=== PATIENT | female | born 1990 | race Caucasian/White ===

== ENCOUNTER 2020-06-21 10:41 | Outpatient (CLI) | payer OTHER, SELFPAY ==
--- NOTE | ~2020-06-21 | XR_ITS ---
XR foot RT min 3V DATE: 06/21/2020 11:17 INDICATION: Right foot pain, generalized. No known injury. TECHNIQUE: 4 views COMPARISON: None FINDINGS: Mild plantar calcaneal enthesopathy. No fracture or dislocation, periosteal reaction or bone destruction. Joint spaces are preserved. IMPRESSION: Mild plantar calcaneal enthesopathy Reviewed, dictated and finalized at location A.
== END 2020-06-21 10:42 | disposition home or self-care (01) ==
DX: M79.671 Pain in right foot (principal); M77.31 Calcaneal spur, right foot
CPT/HCPCS: 73630

== ENCOUNTER 2020-12-24 11:19 | Emergency (ER) | payer OTHER, SELFPAY ==
--- NOTE | ~2020-12-24 | XR_ITS ---
EXAMINATION: XR chest 2V DATE: 12/24/2020 11:37 INDICATION: Cough and shortness of breath. TECHNIQUE: Frontal and lateral views of the chest were obtained. COMPARISON: Chest 2 views 04/04/2018 FINDINGS: The chest demonstrates clear lungs without pneumonia, pleural effusion, or pneumothorax. Th e heart size is normal. IMPRESSION: 1. No acute cardiopulmonary disease. Reviewed, dictated and finalized at location A. ER PICKER
[2020-12-24 11:21] VITALS: BP 123/92; PULSE 100; RESP 28; TEMP 36.4; O2SAT 97
--- NOTE | 2020-12-24 11:24 | ECG_ITS ---
Measurements Intervals [place] Rate: 84 P: 48 [place]: 143 QRS: 66 QRSD: 83 T: 45 QT: 373 QTc: 441 Interpretive Statements SINUS RHYTHM BORDERLINE T WAVE ABNORMALITY- INFERIOR LEADS BASELINE ARTIFACT- I, II, III, AVR, AVL, AVF, V1-V3 BORDERLINE ECG Electronically Signed On 12-24-2020 12:00:46 PERIOPERATIVE NURSE by Jesse Hobbs D.O.
[2020-12-24 11:55] LABS: Basophils Absolute Auto 0.1 K/mm3 (0.0-0.1); Basophils Percent Auto 0.9 % (0.2-1.2); Eosinophils Absolute Auto 1.6 K/mm3 (0-0.3); Eosinophils Percent Auto 11.1 % (0-4.4); Hematocrit 42.4 % (37.0-47.0); Immature Granulocyte Absolute 0.06 K/mm3 (0.00-0.031); Immature Granulocyte Percent A 0.4 % (0-0.5); Lymphocytes Absolute Auto 2.95 K/mm3 (0.9-3.2); Lymphocytes Percent Auto 20.9 % (18.3-44.2); Mean Corpuscular Hemoglobin 29.1 pg (26-34); Mean Corpuscular Volume 88.1 fl (80-100); Monocytes Absolute Auto 0.9 K/mm3 (0.1-0.6); Monocytes Percent Auto 6.4 % (2.6-8.5); Neutrophils Absolute Auto 8.5 K/mm3 (1.3-6.7); Neutrophils Percent Auto 60.3 % (45.5-73.1); Platelet Count Result 305 k/mm3 (150-375); Red Blood Count 4.81 M/mm3 (4.2-5.4); Red Cell Distribution Width 11.9 % (11.5-14.5); White Blood Count 14.1 K/mm3 (4.5-10.0)
[2020-12-24 12:07] LABS: Anion Gap 7 mmol/L (8-16); Blood Urea Nitrogen 9 mg/dL (7-17); Calcium 9.3 mg/dL (8.4-10.2); Carbon Dioxide 31 mmol/L (22-30); Chloride 97 mmol/L (98-107); Estimated CRCL calculation 131 ml/min; Estimated Glomerular Filt Rate > 60; Glucose 99 mg/dL (65-110); Potassium 4.1 mmol/L (3.4-5.0); Sodium 135 mmol/L (137-145)
[2020-12-24 13:00] VITALS: BP 135/77; PULSE 92; RESP 17; O2SAT 90
[2020-12-24 13:49] VITALS: PULSE 94; O2SAT 92
[2020-12-24 14:00] VITALS: BP 115/77; PULSE 82; RESP 16; O2SAT 90
[2020-12-24 15:00] VITALS: BP 106/73; PULSE 81; RESP 14; O2SAT 90
--- NOTE | 2020-12-24 15:07 | ED.SOB ---
HPI - SOB/Dyspnea General Chief Complaint: Shortness of Breath/Dyspnea Stated Complaint: SOB Time Seen by Provider: 12/24/20 15:06 Source: patient Mode of arrival: ambulatory Limitations: no limitations History of Present Illness HPI Narrative: Patient presents with shortness of breath, productive cough of clear sputum, nasal congestion, postnasal discharge and sore throat started 2 days ago. Patient is fully vaccinated for COVID-19, had the booster dose October 2020. Patient denies exposure to anybody known having COVID-19 infection. Patient denies having any family member having similar symptoms. Patient denies any fever, chills, chest pain. Related Data Allergies Allergy/AdvReac Type Severity Reaction Status Date / Time topiramate Allergy Intermediate CHEST PAIN Verified 12/24/20 13:39 penicillin G Allergy Mild RASH Verified 12/24/20 13:39 vancomycin Allergy Mild Itching Verified 12/24/20 13:39 prednisone AdvReac Muscle Verified 12/24/20 13:39 Spasms Review of Systems Review of Systems: CONSTITUTIONAL: Denies fever, chills, or sweats. EYES: Denies visual changes, redness, or discharge. ENT: Denies rhinorrhea, congestion, sore throat, or otalgia. CARDIOVASCULAR: Denies chest pain, palpitations, or edema. RESPIRATORY: Denies cough or dyspnea. GASTROINTESTINAL: Denies abdominal pain, nausea, vomiting, or diarrhea. GENITOURINARY: Denies dysuria or hematuria. SKIN: Denies rash or itching. MUSCULOSKELETAL: Denies back pain, joint pain, or myalgia. NEUROLOGIC: Denies headache, numbness, or weakness. PSYCHIATRIC: Denies anxiety or depression. Exam Narrative: General appearance: Well-developed, well-nourished Skin: Normal color Head: Normocephalic, nontraumatic Eyes: Clear conjunctiva ENT: Oropharynx normal, ears normal, nasal congestion, rhinorrhea Neck: Supple, nontender Chest and respiratory: Diffuse scattered coarse and fine wheezing bilaterally slight diminution of air entry bilaterally Heart: Regular rate/rhythm Abdomen: Soft, nontender, no organomegaly, quiet bowel sounds Vascular: Normal peripheral pulses, normal capillary refill. Musculoskeletal: Normal range of motion, nontender back Neurologic: Alert and oriented ?3, MARKETING DATABASE CONSULTANT is normal as tested, no gross motor deficit Course Course Emergency Course: Stable, improving Reevaluation(s) Reevaluation #1: Patient feeling much better prior to discharge. Patient is telling me that prednisone sometimes causing cramps in her lower extremity. Requested to try it again and will be stopped if she developed cramps again. Date: 12/24/20 Time: 15:53 Vital Signs Vital signs: Vital Signs Temperature 36.4 C 12/24/20 11:21 Pulse Rate 100 12/24/20 11:21 Respiratory Rate 28 H 12/24/20 11:21 Blood Pressure 123/92 H 12/24/20 11:21 Pulse Oximetry 97 12/24/20 11:21 Temperature 36.4 C 12/24/20 11:21 Pulse Rate 94 12/24/20 13:49 Respiratory Rate 28 H 12/24/20 11:21 Blood Pressure 123/92 H 12/24/20 11:21 Pulse Oximetry 92 12/24/20 13:49 MDM - SOB/Dyspnea MDM Narrative Medical decision making narrative: Respiratory viral infection causing bronchospasm is my concern. Chest x-ray showed no pneumonia. Patient is fully vaccinated for COVID-19. Viral infection is my concern. Differential Diagnosis Differential diagnosis: Likely community acquired pneumonia, asthma with exacerbation and other (Viral infection) Lab Data Result diagrams: 12/24/20 11:33 12/24/20 11:33 Labs: Lab Results 12/24/20 12/24/20 Range/Units 11:33 11:33 WBC 14.1 H (4.5-10.0) K/mm3 RBC 4.81 (4.2-5.4) M/mm3 Hgb 14.0 (12.0-15.0) g/dL Hct 42.4 (37.0-47.0)
[2020-12-24] MEDS: IPRATROPIUM BR 0.02% INH SOLN 0.5 MG/2.5 ML VIAL INHALATION (15:29)
[2020-12-24] MEDS: ALBUTEROL SULFATE NEB 2.5 MG/0.5 ML INH 5 MG INHALATION (15:29)
[2020-12-24] MEDS: predniSONE 20 MG TABLET 60 MG PO (15:55)
[2020-12-24 16:00] VITALS: BP 102/66; PULSE 88; RESP 14; O2SAT 92
== END 2020-12-24 16:01 | disposition home or self-care (01) ==
PROVIDERS: Emergency Provider Emergency Medicine
DX: J06.9 Acute upper respiratory infection, unspecified (principal); J98.01 Acute bronchospasm; R94.31 Abnormal electrocardiogram [ECG] [EKG]
CPT/HCPCS: 36415; 71046; 80048; 85025; 93005; 94640; 99284; J7512

== ENCOUNTER 2021-06-30 18:25 | Emergency (ER) | payer OTHER, SELFPAY ==
[2021-06-30 18:41] VITALS: BP 121/75; PULSE 105; RESP 16; TEMP 37.6; O2SAT 98
--- NOTE | 2021-06-30 18:57 | ED.URI ---
HPI - URI/Sore Throat General Chief Complaint: Upper Respiratory Infection Stated Complaint: Sore Throat Time Seen by Provider: 06/30/21 18:58 Source: patient, family and RN notes reviewed Mode of arrival: ambulatory Limitations: no limitations History of Present Illness HPI Narrative: 30-year-old female presents to the [facility] with complaints of 3 weeks of congestion, decreased hearing in her left ear over the last 2 days. Has had a cough. Recently diagnosed with asthma. Has taken Keflex. Only allergic to penicillinVK MD elicited complaint: sore throat, rhinorrhea and nasal congestion Related Data Allergies Allergy/AdvReac Type Severity Reaction Status Date / Time topiramate Allergy Intermediate CHEST PAIN Verified 06/30/21 19:16 penicillin G Allergy Mild RASH Verified 06/30/21 19:16 vancomycin Allergy Mild Itching Verified 06/30/21 19:16 Review of Systems Review of Systems: All systems reviewed & are unremarkable except as noted in HPI and below Constitutional: Constitutional: Reports no additional constitutional complaints, Denies chills, Denies fever(s) and Denies headache(s) Eyes: Eyes: Reports no additional eye complaints ENT: Reports as per HPI, Denies vertigo, Denies dizziness, Denies headache(s), Denies nasal congestion and Denies sore throat Cardiovascular: Cardiovascular: Reports no additional cardiovascular complaints, Denies chest pain, Denies syncope, Denies rapid heart rate and Denies dyspnea Respiratory: Respiratory: Reports no additional respiratory complaints, Denies cough, Denies dyspnea and Denies wheezing Gastrointestinal: Gastrointestinal: Reports no additional gastrointestinal complaints, Denies abdominal pain, Denies diarrhea, Denies nausea and Denies vomiting Musculoskeletal: Musculoskeletal: Reports no additional musculoskeletal complaints and Denies numbness Integumentary/Breasts: Skin/Breast: Reports system reviewed and no additional complaints, except as docu Neurologic: Reports system reviewed and no additional complaints, except as documented, Denies vertigo, Denies dizziness, Denies syncope, Denies headache(s), Denies focal weakness and Denies numbness Psychiatric: Psychiatric: Reports no additional psychiatric complaints Allergic/Immunologic: Allergic/Immunologic: Reports no additional allergic/immunologic complaints and Denies wheezing PMFSH Past Medical History Medical History (Updated 06/30/21 @ 20:19 by Christiana Dunn, [place]) Asthma Social History Social History (Updated 06/30/21 @ 20:18 by RUEL Hall Living arrangements: with family Gender identity (if verbalized by the patient): Female Comments At the time of my signature, I reviewed and agree with the nursing past medical, surgical, social, and family history. There is no relevant family history pertinent to the patient complaint. Exam Const: General: cooperative, healthy appearing, no acute distress, well developed and alert Nutritional Appearance: well nourished and obese Orientation/consciousness: patient oriented x3 Limitations: no limitations HENMT: Head: normal to inspection Ears: external ears normal, EAC's normal and TM abnormal bulging on the left, erythematous on the left and with loss of landmarks on the left General nose exam: Normal nasal mucous membranes and turbinates present Face and sinus: normal facial exam Mouth: Yes moist mucous membranes Throat: posterior oropharynx normal, tonsils normal and uvula midline Eyes: Conjunctivae: conjunctivae normal Pupils: Equal, round and reactive pupils present Neck: Neck: normal visual inspection, no lymphadenopathy and no meningeal signs Chest: Chest palpation & inspection: normal inspection of the chest Resp: Effort & Inspection: normal respiratory effort and no use of accessory muscles Auscultation: no crackles, no rales, no rhonchi, wheezes and diminished lung sounds bilateral throughout Cardio: Rate: regular rate Rhythm: regular rhythm
[2021-06-30] MEDS: ALBUTEROL SULFATE NEB 2.5 MG/3 ML INH INHALATION (19:17)
[2021-06-30] MEDS: IPRATROPIUM BR 0.02% INH SOLN 0.5 MG/2.5 ML VIAL INHALATION (19:18)
== END 2021-06-30 20:20 | disposition home or self-care (01) ==
PROVIDERS: Emergency Provider Nurse Practitioner
DX: J40 Bronchitis, not specified as acute or chronic (principal); H66.92 Otitis media, unspecified, left ear; J45.909 Unspecified asthma, uncomplicated
CPT/HCPCS: 87081; 87880; 94640; 99213; G0463

== ENCOUNTER 2021-12-21 11:46 | Emergency (ER) | payer OTHER, SELFPAY ==
[2021-12-21 11:47] VITALS: BP 139/67; PULSE 132; RESP 26; TEMP 37; O2SAT 100
[2021-12-21 11:56] VITALS: PULSE 101
[2021-12-21 11:57] VITALS: BP 116/71; PULSE 101; RESP 22; O2SAT 100
[2021-12-21] MEDS: ONDANSETRON INJ 4 MG/2 ML VIAL IV PUSH (12:51)
[2021-12-21] MEDS: SODIUM CHLORIDE 0.9% IV 1,000 ML 999 ML IV CONT (12:51)
--- NOTE | 2021-12-21 12:58 | ED.GENADULT ---
HPI - General Adult General Chief complaint: Unspecified Stated complaint: fentanyl withdraw Time Seen by Provider: 12/21/21 12:00 History of Present Illness HPI narrative: Patient is a 31-year-old female who presents ER with concerns for fentanyl withdrawal. She stopped taking fentanyl 6 days ago. She has run out of Xanax and is feeling more anxious. She has been having occasional diarrhea as well as some nausea. No fevers or chills. No sweats. No chest pain or chest pressure. She reports her doctor thinks she is withdrawing from [place] as he did not know that she was treating it for fentanyl. Patient has decided she wants to get clean and that is why she made a conscious effort to stop. Related Data Allergies Allergy/AdvReac Type Severity Reaction Status Date / Time topiramate Allergy Intermediate CHEST PAIN Verified 06/30/21 19:16 penicillin G Allergy Mild RASH Verified 06/30/21 19:16 vancomycin Allergy Mild Itching Verified 06/30/21 19:16 tramadol Allergy Unknown Verified 12/21/21 11:59 Review of Systems Review of Systems: All systems reviewed & are unremarkable except as noted in HPI and below Constitutional: Constitutional: Denies chills and Denies fever(s) Cardiovascular: Cardiovascular: Denies chest pain, Denies rapid heart rate and Denies edema Respiratory: Respiratory: Denies cough and Denies dyspnea Gastrointestinal: Gastrointestinal: Denies abdominal pain, Reports diarrhea, Reports nausea and Reports vomiting Musculoskeletal: Musculoskeletal: Reports myalgias and Denies numbness Psychiatric: Psychiatric: Reports anxiety PMFSH Past Medical History Medical History (Updated 12/21/21 @ 15:04 by Micheal London MD) Asthma Fibromyalgia Psoriatic arthritis Surgical History Surgical History (Updated 12/21/21 @ 15:00 by Micheal London MD) History of D&C Social History Social History (Updated 06/30/21 @ 20:18 by Christiana Dunn APRN) Gender identity (if verbalized by the patient): Female Exam Narrative: GENERAL: Well-appearing, well-nourished, and in no acute distress. HEAD: Normocephalic, atraumatic. EYES: PERRL and EOMI. CHEST: Clear to auscultation. No respiratory distress. HEART: Tachycardic and regular. Normal peripheral pulses. ABDOMEN: Soft, nontender, nondistended. EXTREMITIES: Normal range of motion. No edema. SKIN: Warm, dry, no rash. NEURO: Alert and oriented x3. PSYCH: Normal mood and affect. Course Course Emergency Course: Patient hydrated. Labs unremarkable. No signs of infection. Discharge home. We will give some antiemetics. Should complete withdrawal in the next couple of days. Vital Signs Vital signs: Vital Signs Temperature 98.6 F 12/21/21 11:47 Pulse Rate 132 H 12/21/21 11:47 Respiratory Rate 26 H 12/21/21 11:47 Blood Pressure 139/67 12/21/21 11:47 Pulse Oximetry 100 12/21/21 11:47 Oxygen Delivery Room Air 12/21/21 11:47 Temperature 98.6 F 12/21/21 11:47 Pulse Rate 101 H 12/21/21 11:57 Respiratory Rate 22 H 12/21/21 11:57 Blood Pressure 116/71 12/21/21 11:57 Pulse Oximetry 100 12/21/21 11:57 Oxygen Delivery Room Air 12/21/21 11:47 Medical Decision Making Vital Signs Vital Signs: Vital Signs Temperature 98.6 F 12/21/21 11:47 Pulse Rate 132 H 12/21/21 11:47 Respiratory Rate 26 H 12/21/21 11:47 Blood Pressure 139/67 12/21/21 11:47 Pulse Oximetry 100 12/21/21 11:47 Oxygen Delivery Room Air 12/21/21 11:47 Temperature 98.6 F 12/21/21 11:47 Pulse Rate 101 H 12/21/21 11:57 Respiratory Rate 22 H 12/21/21 11:57 Blood Pressure 116/71 12/21/21 11:57 Pulse Oximetry 100 12/21/21 11:57 Oxygen Delivery Room Air 12/21/21 11:47 Lab Data Result diagrams: 12/21/21 12:58 12/21/21 12:58 Labs: Lab Results 12/21/21 12/21/21 12/21/21 Range/Units 12:58 12:58 12:58 WBC 10.6 H (4.5-10.0) K/mm3 RBC 4.82 (4.2-5.4) M/mm3 Hgb 13.7
[2021-12-21 13:06] LABS: Appearance Urine Clear (Clear); Basophils Absolute Auto 0.1 K/mm3 (0.0-0.1); Basophils Percent Auto 0.5 % (0.2-1.2); Bilirubin Urine 1+ (Negative); Blood Urine Negative (Negative); Color Urine Yellow (Yellow); Eosinophils Percent Auto 0.3 % (0-4.4); Glucose Urine UA Negative (Negative); Hematocrit 41.6 % (37.0-47.0); Hemoglobin 13.7 g/dL (12.0-15.0); Immature Granulocyte Absolute 0.04 K/mm3 (0.00-0.031); Immature Granulocyte Percent A 0.4 % (0-0.5); Ketones Urine Trace mg/dL (Negative); Leukocyte Esterase Ur Negative LEU/UL (Negative); Lymphocytes Absolute Auto 3.55 K/mm3 (0.9-3.2); Lymphocytes Percent Auto 33.6 % (18.3-44.2); Mean Corpuscular HGB Conc 32.9 g/dl (32-36); Mean Corpuscular Hemoglobin 28.4 pg (26-34); Mean Corpuscular Volume 86.3 fl (80-100); Mean Platelet Volume 9.9 fl (7.4-10.4); Monocytes Absolute Auto 0.6 K/mm3 (0.1-0.6); Neutrophils Absolute Auto 6.3 K/mm3 (1.3-6.7); Neutrophils Percent Auto 59.2 % (45.5-73.1); Nitrate Urine Negative (Negative); Platelet Count Result 349 k/mm3 (150-375); Protein Urine Trace mg/dL (Negative); Red Blood Count 4.82 M/mm3 (4.2-5.4); Red Cell Distribution Width 13.2 % (11.5-14.5); Specific Grav Ur 1.025 (1.001-1.035); Urobilinogen Urine 0.2 mg/dL (<2.0); White Blood Count 10.6 K/mm3 (4.5-10.0); pH Urine 5.5 (5.0-9.0)
[2021-12-21 13:12] LABS: Mucus Urine Rare /lpf; RBC Urine 0-2 /hpf (0-2); Squamous Epithelial Cell Urine Rare /hpf (Few); WBC Urine 0-3 /hpf
[2021-12-21 13:13] LABS: Add Urine Microscopic? YES
[2021-12-21 13:15] LABS: Alanine Aminotransferase 19 U/L (6-35); Albumin Level 4.8 g/dL (3.5-5.1); Alkaline Phosphatase 62 U/L (38-126); Anion Gap 16 mmol/L (8-16); Aspartate Amino Transferase 25 U/L (14-36); Bilirubin,Total 0.3 mg/dL (0.2-1.3); Blood Urea Nitrogen 10 mg/dL (7-17); Calcium 9.2 mg/dL (8.4-10.2); Carbon Dioxide 25 mmol/L (22-30); Chloride 102 mmol/L (98-107); Estimated CRCL calculation 125 ml/min; Estimated Glomerular Filt Rate > 60; Glucose 95 mg/dL (65-110); Lipase 52 U/L (23-300); Potassium 3.3 mmol/L (3.4-5.0); Sodium 143 mmol/L (137-145)
[2021-12-21 14:15] LABS: Influenza A QL RT-PCR Negative (Negative); Influenza B QL RT-PCR Negative (Negative); SARS-CoV-2 RNA PCR Negative
[2021-12-21 15:33] VITALS: BP 113/77; PULSE 80; RESP 18; O2SAT 99
== END 2021-12-21 15:35 | disposition home or self-care (01) ==
PROVIDERS: Emergency Provider Emergency Medicine
DX: F11.23 Opioid dependence with withdrawal (principal); Z20.822 Contact with and (suspected) exposure to COVID-19; J45.909 Unspecified asthma, uncomplicated; M79.7 Fibromyalgia; L40.50 Arthropathic psoriasis, unspecified
CPT/HCPCS: 36415; 80053; 81001; 83690; 85025; 87636; 96361; 96374; 99284; J2405; J7030

== ENCOUNTER 2021-12-21 19:30 | Inpatient (IN) | payer OTHER, SELFPAY ==
[2021-12-21] VITALS (7 sets, daily range): BP systolic 99–129; BP diastolic 56–75; PULSE 84–109; RESP 16–20; TEMP 36.3–36.9; O2SAT 88–100; BMI 35.9
--- NOTE | ~2021-12-21 | XR_ITS ---
XR chest 2V DATE: 12/23/2021 09:05 INDICATION: Bloody sputum TECHNIQUE: PA and lateral views COMPARISON: 12/21/2021 portable supine AP views FINDINGS: There is interval improvement of bilateral primarily central pulmonary infiltrates since . Normal heart size. No pleural effusion or pulmonary vascular congestion or pneumothorax. No hilar or mediastinal enlargement. Included skeletal structures are unremarkable. IMPRESSION: Improvement of bilateral pulmonary infiltrates since 12/21/2021 Reviewed, dictated and finalized at location A. S OPERATIONS ASSOCIATE
--- NOTE | ~2021-12-21 | XR_ITS ---
XR chest 1V portable DATE: 12/21/2021 20:20 INDICATION: Chest pain TECHNIQUE: Portable supine AP chest views on 12/21/2021 at 2013 at 2014 hours COMPARISON: 12/24/2020 PA and lateral chest FINDINGS: There are bilateral mid and upper lung infiltrates, most prominent overlying the perihilar areas. Differential diagnosis includes bilateral pneumonia and pulmonary edema. Heart size is normal. No pulmonary vascular congestion or pleural effusion. No pneumothorax. IMPRESSION: Bilateral mid-upper lung field infiltrates, most prominent overlying the perihilar areas. These suggest bilateral pneumonia. Pulmonary edema is not excluded. Reviewed, dictated and finalized at location A. PULLER IMPRESSION: Bilateral mid-upper lung field infiltrates, most prominent overlyin g the perihilar areas. These suggest bilateral pneumonia. Pulmonary edema is no t excluded.
--- NOTE | 2021-12-21 19:40 | ECG_ITS ---
Measurements Intervals [place] Rate: 99 P: -2 [place]: 151 QRS: 53 QRSD: 88 T: 33 QT: 345 QTc: 444 Interpretive Statements SINUS RHYTHM NORMAL ECG COMPARED TO ECG 12/24/2020 11:27:09 NO SIGNIFICANT CHANGES Electronically Signed On 12-22-2021 6:30:19 BLOOD BANK CREDIT CLERK by Jesse Hobbs D.O.
--- NOTE | 2021-12-21 19:44 | ED.OVERDOSE ---
HPI - Overdose General Chief Complaint: Overdose Stated Complaint: overdose Source: patient, EMS, RN notes reviewed and old records reviewed Mode of arrival: EMS Limitations: no limitations History of Present Illness HPI Narrative: This is a 31 year old female with opioid and benzo dependence who presents for evaluation of an overdose. Patient states she was evaluated earlier today for withdrawal symptoms. She reported she was out of her xanax and she had not taken Fentanyl in 7 days. She states she wanted to get clean. She was given some medication for withdrawal and she was discharged home. She states once she got home , her told her he wanted a divorce. She took 3 xanax to try to calm down and then she took 3 fentanyl. Patient was found in her bathroom not breathing on EMS arrival. EMS gave patient 4 mg narcan and patient became responsive. She is complaining of chest pain now and difficulty seeing. She states she was not trying to intentionally overdose. she was not trying to kill herself . She states she wants to live. Related Data Allergies Allergy/AdvReac Type Severity Reaction Status Date / Time topiramate Allergy Intermediate CHEST PAIN Verified 06/30/21 19:16 penicillin G Allergy Mild RASH Verified 06/30/21 19:16 vancomycin Allergy Mild Itching Verified 06/30/21 19:16 tramadol Allergy Unknown Verified 12/21/21 11:59 Review of Systems Review of Systems: All systems reviewed & are unremarkable except as noted in HPI and below Constitutional: Constitutional: Denies chills, Denies fatigue and Denies fever(s) ENT: Denies nasal congestion and Denies sore throat Cardiovascular: Cardiovascular: Reports chest pain and Denies radiating jaw, neck or arm pain Respiratory: Respiratory: Denies chest congestion, Reports cough and Reports dyspnea Gastrointestinal: Gastrointestinal: Denies abdominal pain, Denies nausea and Denies vomiting [facility] Past Medical History Medical History (Updated 12/22/21 @ 08:24 by Letty Myers MD) Asthma Fibromyalgia Obstructive sleep apnea Psoriatic arthritis Surgical History Surgical History History of D&C Family History Family History Grandparent Acute myocardial infarction Father Hypertension Dementia, Onset Age: 55 Obstructive sleep apnea Grandparent Chronic obstructive pulmonary disease Mother Depression Anxiety Sibling Drug abuse Social History Social History (Updated 12/22/21 @ 03:00 by Angie Martinez DO) Social History: Code status: Full code Surrogate decision maker: Mother Smoking packs per day: 1 Smoking cigarettes per day: 20.0 Years smoked: 10 Smoking pack-years: 10.00 Smoking status: Former smoker Tobacco type: cigarettes Alcohol intake: never Substance use: current Substance use type: opiates, painkillers and prescription drug Other substance usage details: She snorts opiates Last use: 12/22/2021 Lack of Transportation: No Lack of Food: Never True Current Housing: I Have Housing Concerned About Future Housing: No Difficulty Paying Gas/Electric Bills: No Difficulty Paying for Meds: No Currently Unemployed: No Education: High School Diploma/GED Difficulty w/ Childcare or Family Care: No Additional living arrangements comments: She lives with her who also suffers from drug addiction. 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 Gender identity (if verbalized by the patient): Female Spiritual care concerns: No Exam Const: General: alert and ill appearing Nutritional Appearance: obese Orientation/consciousness: patient oriented x3 HENMT: Head: normal to inspection Mouth: Yes dry mucous membranes Throat: posterior
[2021-12-21 19:53] LABS: Basophils Absolute Auto 0.1 K/mm3 (0.0-0.1); Basophils Percent Auto 0.5 % (0.2-1.2); Eosinophils Percent Auto 0.3 % (0-4.4); Hematocrit 46.1 % (37.0-47.0); Immature Granulocyte Absolute 0.28 K/mm3 (0.00-0.031); Immature Granulocyte Percent A 2.1 % (0-0.5); Lymphocytes Absolute Auto 3.37 K/mm3 (0.9-3.2); Lymphocytes Percent Auto 25.7 % (18.3-44.2); Mean Corpuscular HGB Conc 32.5 g/dl (32-36); Mean Corpuscular Hemoglobin 28.5 pg (26-34); Mean Corpuscular Volume 87.6 fl (80-100); Mean Platelet Volume 9.6 fl (7.4-10.4); Monocytes Absolute Auto 0.3 K/mm3 (0.1-0.6); Monocytes Percent Auto 2.4 % (2.6-8.5); Platelet Count Result 341 k/mm3 (150-375); Red Blood Count 5.26 M/mm3 (4.2-5.4); Red Cell Distribution Width 13.4 % (11.5-14.5); White Blood Count 13.1 K/mm3 (4.5-10.0)
[2021-12-21 20:04] LABS: Alanine Aminotransferase 25 U/L (6-35); Alkaline Phosphatase 85 U/L (38-126); Anion Gap 19 mmol/L (8-16); Aspartate Amino Transferase 30 U/L (14-36); Bilirubin,Total 0.4 mg/dL (0.2-1.3); Blood Urea Nitrogen 8 mg/dL (7-17); Calcium 8.6 mg/dL (8.4-10.2); Carbon Dioxide 18 mmol/L (22-30); Chloride 104 mmol/L (98-107); Estimated Glomerular Filt Rate > 60; Glucose 182 mg/dL (65-110); Potassium 3.5 mmol/L (3.4-5.0); Sodium 141 mmol/L (137-145)
[2021-12-21 20:05] LABS: INR 1.2; Prothrombin Time 14.8 Seconds (11.1-14.7)
[2021-12-21 20:06] LABS: Partial Thromboplastin Time 27.3 SECONDS (22.3-36.8)
[2021-12-21 20:15] LABS: Troponin I < 0.012 ng/mL (0.000-0.034)
[2021-12-21 20:25] LABS: Amphetamine Screen Urine Negative (Negative); Barbiturate Screen Urine Negative (Negative); Benzodiazepines Screen Urine Positive (Negative); Cannabinoid Screen Urine Negative (Negative); Cocaine Screen Urine Negative (Negative); Methadone Screen Urine Negative (Negative); Opiate Screen Urine Positive (Negative); Phencyclidine Screen Urine Negative (Negative)
[2021-12-21 20:29] LABS: Alveolar/Arterial O2 Gradient 91.1 mmHg; Base Excess ABG -5.9 mEq/l (+/-2.0); Fractional Inspired Oxygen 28 %; HCO3 ABG 18.8 mEq/l (22.0-26.0); Oxygen Saturation ABG 92.9 % (95.0-100.0); Oxyhemoglobin 92.3 % THb (90.0-100.0); PCO2 ABG 34.6 mmHg (35.0-45.0); PO2 ABG 67.7 mmHg (80.0-100.0); PO2 FiO2 Ratio Arterial Blood 2.42 %; Total Hemoglobin 13.9 g/dL (12.0-18.0); pH ABG 7.353 (7.350-7.450)
[2021-12-21 20:30] LABS: Device NASAL CANNULA; Modified Allen's Test Pass; Site Drawn RIGHT RADIAL
[2021-12-21 21:21] LABS: Lactic Acid Reflex 1.2 mmol/L (0.7-2.0)
[2021-12-21 21:31] LABS: NT Pro B Type Natriuretic Pept 52 pg/mL (5-100)
[2021-12-21] MEDS: metroNIDAZOLE 500 MG/ISO 100ML 500 MG/100 ML BAG 100 MG IVPB (21:44)
[2021-12-21] MEDS: SODIUM CHLORIDE 0.9% IV 1,000 ML 999 ML IV CONT (22:43)
[2021-12-21 22:53] LABS: Glucose Point of Care 79 mg/dl (65-105)
[2021-12-21 23:49] LABS: Influenza A QL RT-PCR Negative (Negative); Influenza B QL RT-PCR Negative (Negative); RSV RNA, RT-PCR Negative (Negative); SARS-CoV-2 RNA PCR Negative
[2021-12-22] VITALS (11 sets, daily range): BP systolic 99–120; BP diastolic 50–84; PULSE 74–102; RESP 13–20; TEMP 36.8–38.3; O2SAT 94–100
--- NOTE | 2021-12-22 01:04 | ADMGEN ---
This patient, Tessa Conde, was admitted to Medical Room 243-. Patient/family oriented to hospital policies and general routines including ID bracelet, bed and alarms, visiting hours, pain management, procedures, bathroom and other care routines, personal items, smoking policy, room service/diet, and visiting hours. Information on how to activate the Rapid Response Team has been discussed. Patient/Family are encouraged to report perceived risks to care and to ask questions if they do not understand what they are told or what they should do.
--- NOTE | 2021-12-22 01:11 | PM.IMHP ---
H&P: HPI History of Present Illness Date/Time: 12/22/21 01:11 Chief Complaint: Fentanyl and Xanax overdose Narrative: 31-year-old female with past medical history of psoriatic arthritis, fibromyalgia, asthma and narcotic and benzodiazepine abuse who presented to the ER via EMS after having overdosed on fentanyl and Xanax. The patient had been trying to quit fentanyl and Xanax use and had been evaluated in the ER earlier in the day for withdrawal symptoms. She was given nausea medications and discharge. She stated that she went home and her kept pushing her to use fentanyl. He stated that she was useless and that he wanted a divorce. She stated that she became upset and finally caved in to his pressure. She stated that she thought she had taken all of the Xanax that had been prescribed but found 4 tablets of Xanax. She also took to tablets of fentanyl she did this to come down and get high. Patient's found her in the bathroom not breathing and initiated chest compressions and rescue breathing. When EMS arrived they gave the patient 4 g a Narcan and she woke up immediately. She stated that when she woke up she could not see anything and was until she got to the ER that her vision returned. In the ER the patient was noted to have some hypoxic of events when she would fall asleep with sats down to 88%. The patient states that her father is told her in the past that she has prolonged episodes of apnea when she is asleep. She was afebrile. Chest x-ray demonstrated bilateral mid and upper lung field infiltrates overlying perihilar areas suggestive of pneumonia. However pulmonary edema is not excluded. Her labs did demonstrate some mild leukocytosis but differential was normal. At the time of my evaluation the patient has started coughing up a small amount of blood-tinged sputum approximately a dime size amount. She stated that prior to taking the drug today's she was having no other symptoms with sides diarrhea and anxiety from her withdrawal. She had not been having any cough or congestion. She reports a history of asthma but states that since her father supplied her with a CPAP to treat her sleep apnea she has not had to use rescue inhalers. Also she reports that when she does not snore to fentanyl she does not have as much trouble breathing. She has been abusing narcotics for the last 4 years on and daily basis or multiple times a day basis. She initially started abusing her prescribed Percocet or [place]. But, for the last year has been selling her prescriptions to get fentanyl off the street. She just had a prescription for [place] 7.5 180 tablets filled on the . She reported that when she went to her primary care physician she told him that she seemed to use less of her prescribed pain medications if his she had some anxiety meds. He prescribed her 180 tablets of Xanax 0.5 mg for a 90 day supply. The patient has now officially taken all of the Xanax that was prescribed. She reports he has been having some loose stools associated with her withdrawal. The patient reports that her abuses amphetamines and fentanyl and that they are in a destructive relationship. She states that she has been making an escape plan for the last 6 months. 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 Her children are 1084 into. Her children are currently staying with her parents. Review of Systems Review of Systems: 12 systems were reviewed with pertinent positives and negatives per HPI. Except as documented in the HPI, all other systems were reviewed and are negative. [facility] Past Medical History Medical History (Updated 12/22/21 @ 03:05 by Angie Martinez DO) Asthma Fibromyalgia Obstructive sleep apnea Psoriatic arthritis Surgical History Surgical History History of D&C Family H
[2021-12-22] MEDS: SODIUM CHLORIDE 0.9% IV 1,000 ML 125 ML IV CONT (01:29)
[2021-12-22 06:27] LABS: Basophils Absolute Auto 0.1 K/mm3 (0.0-0.1); Basophils Percent Auto 0.3 % (0.2-1.2); Hematocrit 35.1 % (37.0-47.0); Hemoglobin 11.6 g/dL (12.0-15.0); Immature Granulocyte Absolute 0.16 K/mm3 (0.00-0.031); Immature Granulocyte Percent A 0.6 % (0-0.5); Lymphocytes Percent Auto 12.5 % (18.3-44.2); Mean Corpuscular Hemoglobin 28.5 pg (26-34); Mean Corpuscular Volume 86.2 fl (80-100); Monocytes Absolute Auto 0.8 K/mm3 (0.1-0.6); Monocytes Percent Auto 3.1 % (2.6-8.5); Neutrophils Absolute Auto 21.4 K/mm3 (1.3-6.7); Neutrophils Percent Auto 83.5 % (45.5-73.1); Platelet Count Result 286 k/mm3 (150-375); Red Blood Count 4.07 M/mm3 (4.2-5.4); Red Cell Distribution Width 13.5 % (11.5-14.5); White Blood Count 25.6 K/mm3 (4.5-10.0)
[2021-12-22 06:50] LABS: Alanine Aminotransferase 17 U/L (6-35); Albumin Level 3.5 g/dL (3.5-5.1); Alkaline Phosphatase 53 U/L (38-126); Anion Gap 11 mmol/L (8-16); Aspartate Amino Transferase 20 U/L (14-36); Bilirubin,Total 0.5 mg/dL (0.2-1.3); Blood Urea Nitrogen 6 mg/dL (7-17); Calcium 7.3 mg/dL (8.4-10.2); Carbon Dioxide 21 mmol/L (22-30); Chloride 105 mmol/L (98-107); Estimated CRCL calculation 143 ml/min; Estimated Glomerular Filt Rate > 60; Glucose 85 mg/dL (65-110); Potassium 3.2 mmol/L (3.4-5.0); Sodium 137 mmol/L (137-145)
[2021-12-22] MEDS: ENOXAPARIN 40 MG/0.4 ML SYRINGE SUB-Q (09:54)
[2021-12-22] MEDS: metroNIDAZOLE 500 MG/ISO 100ML 500 MG/100 ML BAG 100 MG IVPB ×2 (09:54→20:15)
[2021-12-22] MEDS: POTASSIUM CHLORIDE 20 MEQ TABLET 40 MEQ PO (10:23)
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
[2021-12-22] MEDS: ACETAMINOPHEN 500 MG TABLET 1000 MG PO (14:34)
[2021-12-22] MEDS: ALPRAZolam (*CRX) 0.5 MG TABLET PO (20:14)
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
[2021-12-22] MEDS: PROMETHAZINE HCL 25 MG/ML AMPUL IM (22:51)
[2021-12-22] MEDS: LOPERAMIDE HCL 2 MG CAPSULE PO (22:51)
[2021-12-23 04:19] VITALS: BP 123/76; PULSE 104; RESP 20; TEMP 37.2; O2SAT 96
[2021-12-23] MEDS: ALPRAZolam (*CRX) 0.5 MG TABLET PO ×4 (04:24→22:41)
[2021-12-23] MEDS: cloNIDine HCL 0.1 MG TABLET PO ×4 (05:18→21:37)
[2021-12-23 05:57] LABS: Alanine Aminotransferase 17 U/L (6-35); Albumin Level 4.1 g/dL (3.5-5.1); Alkaline Phosphatase 66 U/L (38-126); Anion Gap 14 mmol/L (8-16); Aspartate Amino Transferase 21 U/L (14-36); Bilirubin,Total 0.6 mg/dL (0.2-1.3); Blood Urea Nitrogen 5 mg/dL (7-17); Calcium 8.4 mg/dL (8.4-10.2); Carbon Dioxide 21 mmol/L (22-30); Chloride 105 mmol/L (98-107); Estimated CRCL calculation 169 ml/min; Estimated Glomerular Filt Rate > 60; Glucose 96 mg/dL (65-110); Magnesium 1.9 mg/dL (1.6-2.3); Potassium 3.1 mmol/L (3.4-5.0); Sodium 140 mmol/L (137-145)
[2021-12-23 06:11] LABS: Hematocrit 37.2 % (37.0-47.0); Hemoglobin 12.1 g/dL (12.0-15.0); Mean Corpuscular HGB Conc 32.5 g/dl (32-36); Mean Corpuscular Hemoglobin 28.5 pg (26-34); Mean Corpuscular Volume 87.5 fl (80-100); Mean Platelet Volume 10.5 fl (7.4-10.4); Platelet Count Result 288 k/mm3 (150-375); Red Blood Count 4.25 M/mm3 (4.2-5.4); Red Cell Distribution Width 13.7 % (11.5-14.5); White Blood Count 13.9 K/mm3 (4.5-10.0)
[2021-12-23] MEDS: metroNIDAZOLE 500 MG/ISO 100ML 500 MG/100 ML BAG 100 MG IVPB ×2 (07:58→22:51)
[2021-12-23] MEDS: ENOXAPARIN 40 MG/0.4 ML SYRINGE SUB-Q (07:59)
[2021-12-23] MEDS: FOLIC ACID 1 MG TABLET PO (07:59)
[2021-12-23] MEDS: LOPERAMIDE HCL 2 MG CAPSULE PO (08:09)
[2021-12-23] MEDS: POTASSIUM CHLORIDE 20 MEQ PACKET (FOR LIQUID) 40 MEQ PO (08:16)
[2021-12-23 09:16] VITALS: BP 120/67; PULSE 95; RESP 18; TEMP 36.8; O2SAT 99
[2021-12-23] MEDS: ONDANSETRON INJ 4 MG/2 ML VIAL IV PUSH ×2 (09:41→21:17)
--- NOTE | 2021-12-23 11:47 | PM.IMPN ---
Progress Note: A&P Assessment and Plan (1) Aspiration pneumonia: Code(s): J69.0 - Pneumonitis due to inhalation of food and vomit Status: Acute Assessment and Plan: 12/23/2021 interval history: suspect patient has aspiration pneumonia being treated with azithromycin, ceftriaxone, and Flagyl, will continue to monitor repeat chest x-ray showed improvement, Patient stats feeling better denies any cough, shortness of breath or fever or chills, patient does not show any sign of withdrawal and will continue to monitor. once clinically stable, patient will benefit going to inpatient psych [facility] and livestock caretaker is planning. (2) Accidental fentanyl overdose: Code(s): T40.411A - Poisoning by fentanyl or fentanyl analogs, accidental (unintentional), initial encounter Status: Acute (3) Benzodiazepine overdose: Code(s): T42.4X1A - Poisoning by benzodiazepines, accidental (unintentional), initial encounter Status: Acute (4) Opiate abuse, continuous: Code(s): F11.10 - Opioid abuse, uncomplicated Status: Acute (5) Acute respiratory failure with hypoxia: Code(s): J96.01 - Acute respiratory failure with hypoxia Status: Acute (6) Hemoptysis: Code(s): R04.2 - Hemoptysis Status: Acute (7) Obstructive sleep apnea: Code(s): G47.33 - Obstructive sleep apnea (adult) (pediatric) Status: Acute Plan X-ray findings consistent with pneumonia versus pulmonary edema. Pulmonary edema could certainly be a possibility given the patient received large dose of Narcan to reverse her opiate overdose. However patient also has leukocytosis in certainly would be at risk for aspiration given that she was unresponsive and likely not protecting her airway. The patient will be placed on empiric antibiotic therapy with Rocephin, azithromycin and with the addition of Flagyl for anaerobic coverage. The patient is having some hemoptysis differential could include pulmonary edema versus pulmonary contusion due to chest compressions. Also in the differential could be due to pneumonia. Although this will be early in the process of aspiration pneumonia for hemoptysis to developed. Patient did have episodes of hypoxia when she would fall asleep. This is likely multifactorial due to the patient's opioid and benzo ingestion and complicated by her pneumonia. Also playing a factor as I suspect the patient may have some previously undiagnosed obstructive sleep apnea given that her BMI is 35. Will wean oxygen as tolerated. The patient would benefit from outpatient treatment for opiate abuse with prescriptions for methadone or Suboxone. Will provide clonidine and Imodium as needed for symptoms of withdrawal. The patient has never had a sleep study but has had witnessed episodes of prolonged apnea by her father who is a respiratory therapist. He supplied her with a home CPAP which has helped with her symptoms. She will need a titration study as outpatient. Will order auto titrating CPAP BiPAP at this time. Patient has been admitted as observation status. Subjective Date/time seen: 12/23/21 11:47 12/23/2021 interval history: suspect patient has aspiration pneumonia being treated with azithromycin, ceftriaxone, and Flagyl, will continue to monitor repeat chest x-ray showed improvement, Patient stats feeling better denies any cough, shortness of breath or fever or chills, patient does not show any sign of withdrawal and will continue to monitor. once clinically stable, patient will benefit going to inpatient psych [facility] and livestock caretaker is planning. Exam Narrative: moderately obese Patient is comfortable, NAD HEENT: eyes are clear and none icteric LUNGS: normal respiratory effort ABD: distended Lower extremities: no edema SKIN: nonjaundiced Neuro: grossly intact. Objective Data Vital Signs Vital Signs: Vital Signs - 24 hr 12/22/21 14:00 12/22/21 14:34 12/22/21 16:00 Tem[place]a
[2021-12-23 14:04] VITALS: BP 113/59; PULSE 81; RESP 16; TEMP 36.8; O2SAT 98
[2021-12-23] MEDS: PROMETHAZINE HCL 25 MG TABLET PO (17:33)
[2021-12-23 20:25] VITALS: BP 126/69; PULSE 84; RESP 18; TEMP 36.9; O2SAT 97
[2021-12-23] MEDS: MENTHOL 10% / METHYL SALICYLATE 15% 57 GM TUBE 1 APPLIC TOPICAL (21:45)
[2021-12-23] MEDS: ZOLPIDEM TARTRATE (*CRX) 5 MG TABLET 10 MG PO (22:56)
[2021-12-23 23:45] VITALS: PULSE 89; RESP 12; O2SAT 97
[2021-12-23 23:46] VITALS: O2SAT 97
[2021-12-24 03:47] VITALS: BP 122/78; PULSE 7; RESP 20; TEMP 36.7; O2SAT 99
[2021-12-24 05:11] LABS: Hematocrit 35.7 % (37.0-47.0); Hemoglobin 11.8 g/dL (12.0-15.0); Mean Corpuscular HGB Conc 33.1 g/dl (32-36); Mean Corpuscular Hemoglobin 28.9 pg (26-34); Mean Corpuscular Volume 87.3 fl (80-100); Mean Platelet Volume 10.5 fl (7.4-10.4); Platelet Count Result 270 k/mm3 (150-375); Red Blood Count 4.09 M/mm3 (4.2-5.4); Red Cell Distribution Width 13.5 % (11.5-14.5); White Blood Count 10.2 K/mm3 (4.5-10.0)
[2021-12-24 05:29] LABS: Alanine Aminotransferase 16 U/L (6-35); Alkaline Phosphatase 50 U/L (38-126); Anion Gap 10 mmol/L (8-16); Aspartate Amino Transferase 24 U/L (14-36); Bilirubin,Total 0.7 mg/dL (0.2-1.3); Blood Urea Nitrogen 5 mg/dL (7-17); Calcium 8.7 mg/dL (8.4-10.2); Carbon Dioxide 22 mmol/L (22-30); Chloride 105 mmol/L (98-107); Estimated CRCL calculation 169 ml/min; Estimated Glomerular Filt Rate > 60; Glucose 101 mg/dL (65-110); Magnesium 2.1 mg/dL (1.6-2.3); Potassium 3.5 mmol/L (3.4-5.0); Sodium 137 mmol/L (137-145)
[2021-12-24] MEDS: FOLIC ACID 1 MG TABLET PO (08:03)
[2021-12-24] MEDS: metroNIDAZOLE 500 MG/ISO 100ML 500 MG/100 ML BAG 100 MG IVPB (08:03)
[2021-12-24] MEDS: ENOXAPARIN 40 MG/0.4 ML SYRINGE SUB-Q (08:03)
[2021-12-24] MEDS: LOPERAMIDE HCL 2 MG CAPSULE PO (08:03)
[2021-12-24] MEDS: ALPRAZolam (*CRX) 0.5 MG TABLET PO ×2 (08:03→12:37)
[2021-12-24] MEDS: ONDANSETRON INJ 4 MG/2 ML VIAL IV PUSH (08:14)
[2021-12-24] MEDS: cloNIDine HCL 0.1 MG TABLET PO (10:53)
--- NOTE | 2021-12-24 11:51 | PM.DS ---
DS: Admitting Diagnosis Discharge Date December 24, 2021 Admitting Diagnosis accidental fentanyl overdose and pneumonia DS: Discharge Diagnosis Discharge Diagnosis (1) Aspiration pneumonia: Code(s): J69.0 - Pneumonitis due to inhalation of food and vomit Status: Acute (2) Accidental fentanyl overdose: Code(s): T40.411A - Poisoning by fentanyl or fentanyl analogs, accidental (unintentional), initial encounter Status: Acute (3) Benzodiazepine overdose: Code(s): T42.4X1A - Poisoning by benzodiazepines, accidental (unintentional), initial encounter Status: Acute (4) Opiate abuse, continuous: Code(s): F11.10 - Opioid abuse, uncomplicated Status: Acute (5) Acute respiratory failure with hypoxia: Code(s): J96.01 - Acute respiratory failure with hypoxia Status: Acute (6) Hemoptysis: Code(s): R04.2 - Hemoptysis Status: Acute (7) Obstructive sleep apnea: Code(s): G47.33 - Obstructive sleep apnea (adult) (pediatric) Status: Acute DS: Summary Hospital Course Hospital Course: patient is a 31-year-old female history of drug abuse came in with accidental fentanyl overdose altered mental status and pneumonia on chest x-ray. She was started on IV antibiotics did exceptionally well today she is not complaining of any shortness of breath whatsoever. She does not even have a cough. She will be sent home on antibiotics to cover for aspiration. Otherwise she is going to be discharged either home or to a rehab facility. Time Spent with Patient Time attestation: Total time spent providing and/or coordinating discharge services: Exam Narrative: moderately obese Patient is comfortable, NAD HEENT: eyes are clear and none icteric LUNGS: normal respiratory effort ABD: distended Lower extremities: no edema SKIN: nonjaundiced Neuro: grossly intact. DS: Data Data Completed and Pending Labs on day of discharge: Labs from last 24 hours 12/24/21 12/24/21 04:31 04:31 WBC 10.2 H RBC 4.09 L Hgb 11.8 L Hct 35.7 L MCV 87.3 MCH 28.9 MCHC 33.1 RDW 13.5 Plt Count 270 MPV 10.5 H Sodium 137 Potassium 3.5 Chloride 105 Carbon Dioxide 22 Anion Gap 10 BUN 5 L Creatinine 0.50 L Estim Creat Clear Calc 169 Estimated GFR > 60 Glucose 101 Calcium 8.7 Magnesium 2.1 Total Bilirubin 0.7 AST 24 ALT 16 Alkaline Phosphatase 50 Total Protein 8.0 Albumin 4.0 Preliminary micro results at discharge 12/21/21 20:56 Blood Culture - Preliminary Blood 12/21/21 20:56 Blood Culture - Preliminary Blood Discharge Plan Discharge Attending physician on discharge: Jad Luu Discharging Clinician: Jad Luu Patient Disposition: Home, Self-Care Activity: as tolerated Diet: as tolerated Patient Instructions: Antibiotic Form Stand Alone Forms: General Discharge Information Follow-up/Referrals: PHYSICIAN NOT ON STAFF,NONSTAFF [Primary Care Provider] - Discharge Medications: New levofloxacin 750 mg tablet 750 mg PO DAILY 6 Days Qty: 6 0RF metronidazole 500 mg tablet 500 mg PO Q8H 6 Days Qty: 18 0RF Continued albuterol sulfate 0.63 mg/3 mL solution for nebulization 0.63 mg inhalation Q6H PRN (Reason: shortness of breath or wheezing) Qty: 75 0RF albuterol sulfate [Ventolin HFA] 90 mcg/actuation HFA aerosol inhaler 2 puff inhalation QID PRN (Reason: shortness of breath or wheezing) Qty: 8.5 0RF methotrexate sodium 2.5 mg tablet 10 mg PO WEEKLY Rx Instructions: pt takes weekly on Fridays folic acid 1 mg tablet 1 mg PO DAILY zolpidem 10 mg tablet 10 mg PO HS Date of admission: 12/23/21 14:39 Primary Care Provider: PHYSICIAN NOT ON STAFF,NONSTAFF Admitting Provider: Angie Martinez Attending physician on admission: Angie Martinez Condition: Stable
--- NOTE | 2021-12-24 13:09 | PC.NURSE ---
Patient is discharging home with her parents. Patients parents can not arrive until 4 or 5 p.m.. Patient stated that she was going to get a ride with her back to her husbands home. Educated on safety factors, care coordination called to also discuss safety concerns with the patient.
== END 2021-12-24 13:20 | disposition home or self-care (01) | DRG 812 ==
LOC: ANHED 19:38 → ANH2MED 12-22 00:32
PROVIDERS: Family Medicine; Admitting Provider Internal Medicine; Emergency Provider General Practice; Visit Provider Chiropractor
DX: T40.411A Poisoning by fentanyl or fentanyl analogs, accidental (unintentional), initial encounter (principal); J69.0 Pneumonitis due to inhalation of food and vomit; F11.13 Opioid abuse with withdrawal; R04.2 Hemoptysis; T42.4X1A Poisoning by benzodiazepines, accidental (unintentional), initial encounter; G47.33 Obstructive sleep apnea (adult) (pediatric); L40.50 Arthropathic psoriasis, unspecified; M79.7 Fibromyalgia; J45.909 Unspecified asthma, uncomplicated; Z20.822 Contact with and (suspected) exposure to COVID-19; Z79.899 Other long term (current) drug therapy
CPT/HCPCS: 36415; 36600; 51701; 71045; 71046; 80053; 80307; 81025; 82805; 82948; 83605; 83735; 83880; 84484; 85025; 85027; 85610; 85730; 87040; 87637; 93005; 96361; 96365; 96366; 96367; 96372; 96375; 99285; A9270; G0378; G0379; J0456; J0696; J1650; J2405; J2550; J7030

== ENCOUNTER 2021-12-26 11:20 | Emergency (ER) | payer OTHER, SELFPAY ==
[2021-12-26 11:31] VITALS: BP 138/76; PULSE 89; RESP 20; TEMP 37.6; O2SAT 97
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
--- NOTE | 2021-12-26 15:57 | ECG_ITS ---
Measurements Intervals [place] Rate: 74 P: 11 NV: 143 QRS: 41 QRSD: 82 T: -18 QT: 371 QTc: 413 Interpretive Statements SINUS RHYTHM WITH SINUS ARRHYTHMIA NONSPECIFIC T-WAVE ABNORMALITY- ANT/INF LEADS BASELINE ARTIFACT- II, III, AVL, AVF BORDERLINE ECG COMPARED TO ECG 12/21/2021 19:56:36 SINUS ARRHYTHMIA NOW PRESENT T-WAVE ABNORMALITY NOW PRESENT Electronically Signed On 12-26-2021 16:26:07 CERTIFIED RECREATIONAL THERAPIST by Jesse Hobbs D.O.
== END 2021-12-26 12:25 | disposition home or self-care (01) ==
PROVIDERS: Emergency Provider Nurse Practitioner
DX: F41.9 Anxiety disorder, unspecified (principal); G47.33 Obstructive sleep apnea (adult) (pediatric); J45.909 Unspecified asthma, uncomplicated; M79.7 Fibromyalgia; Z87.891 Personal history of nicotine dependence
CPT/HCPCS: 93005; 99213; G0463

== ENCOUNTER 2022-08-01 11:19 | Emergency (ER) | payer OTHER, SELFPAY ==
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
[2022-08-01 11:34] VITALS: BP 118/82; PULSE 98; RESP 18; TEMP 37.2; O2SAT 99
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
== END 2022-08-01 13:17 | disposition home or self-care (01) ==
PROVIDERS: Emergency Provider Nurse Practitioner
DX: S80.212A Abrasion, left knee, initial encounter (principal); S50.311A Abrasion of right elbow, initial encounter; S52.134A Nondisplaced fracture of neck of right radius, initial encounter for closed fracture; V86.06XA Driver of dirt bike or motor/cross bike injured in traffic accident, initial encounter; J45.909 Unspecified asthma, uncomplicated; M79.7 Fibromyalgia; L40.50 Arthropathic psoriasis, unspecified
CPT/HCPCS: 29105; 73080; 73564; 99214; A4565; G0463